=== PATIENT | female | born 1985 | race Two or more races ===

== ENCOUNTER 2024-08-06 08:25 | Outpatient (CLI) | payer OTHER | END 2024-08-06 08:27 | disposition home or self-care (01) | LOC: PRENATAL 08:25 | PROVIDERS: ATTEND Obstetrics & Gynecology Maternal & Fetal Medicine | DX: O36.80X0 Pregnancy with inconclusive fetal viability, not applicable or unspecified (principal); Z36.82 Encounter for antenatal screening for nuchal translucency; O09.529 Supervision of elderly multigravida, unspecified trimester; Z36.9 Encounter for antenatal screening, unspecified; Z14.8 Genetic carrier of other disease; Z3A.12 12 weeks gestation of pregnancy ==

== ENCOUNTER 2024-10-02 08:41 | Outpatient (CLI) | payer OTHER | END 2024-10-02 08:42 | disposition home or self-care (01) | LOC: PRENATAL 08:41 | PROVIDERS: ATTEND Obstetrics & Gynecology Maternal & Fetal Medicine | DX: O44.00 Complete placenta previa NOS or without hemorrhage, unspecified trimester (principal); O09.529 Supervision of elderly multigravida, unspecified trimester; O99.280 Endocrine, nutritional and metabolic diseases complicating pregnancy, unspecified trimester; Z3A.21 21 weeks gestation of pregnancy ==

== ENCOUNTER 2024-12-24 08:16 | Outpatient (CLI) | payer OTHER | END 2024-12-24 08:18 | disposition home or self-care (01) | LOC: PRENATAL 08:16 | PROVIDERS: ATTEND Obstetrics & Gynecology Maternal & Fetal Medicine | DX: O26.849 Uterine size-date discrepancy, unspecified trimester (principal); O36.8199 Decreased fetal movements, unspecified trimester, other fetus; O09.529 Supervision of elderly multigravida, unspecified trimester; O99.280 Endocrine, nutritional and metabolic diseases complicating pregnancy, unspecified trimester; O36.60X0 Maternal care for excessive fetal growth, unspecified trimester, not applicable or unspecified; Z3A.34 34 weeks gestation of pregnancy ==

== ENCOUNTER 2025-01-21 08:17 | Outpatient (CLI) | payer OTHER ==
[~2025-01-21 08:17] MED LIST: GLUCOMETERDEVICE {1, null}; GLUCOSE TEST S1 EACH {1, null}; LANCETS1 EAC2 {1, null}
== END 2025-01-21 08:18 | disposition home or self-care (01) ==
LOC: PRENATAL 08:17
PROVIDERS: ATTEND Obstetrics & Gynecology Maternal & Fetal Medicine
DX: O26.849 Uterine size-date discrepancy, unspecified trimester (principal); O36.8199 Decreased fetal movements, unspecified trimester, other fetus; O09.529 Supervision of elderly multigravida, unspecified trimester; O99.280 Endocrine, nutritional and metabolic diseases complicating pregnancy, unspecified trimester; O99.019 Anemia complicating pregnancy, unspecified trimester; O24.419 Gestational diabetes mellitus in pregnancy, unspecified control; Z3A.36 36 weeks gestation of pregnancy

== ENCOUNTER 2025-02-18 10:13 | Inpatient (IN) | payer OTHER ==
[~2025-02-18] VITALS: Ht 175.3 cm; Wt 82.1 kg
[2025-02-21] VITALS (8 sets, daily range): BP systolic 117–132; BP diastolic 74–81
[2025-02-21] MEDS ORDERED: OXYTOCIN 20 UNITS/500ML RL PIGGYBAG IV ONE (06:22)
[2025-02-21] MEDS ORDERED: PRENATAL TABLE1 EAC6 PO (06:25)
[2025-02-21] MEDS ORDERED: LEVOTHYROXINE25 MCG PO (06:25)
[2025-02-21] MEDS ORDERED: OXYTOCIN 500 ML IV SCH (06:30)
[2025-02-21] MEDS ORDERED: RINGERS SOLUTION,LACTATED 1,000 ML IV SCH (06:30)
[2025-02-21 06:59] LABS: URINE APPEARANCE Clear; URINE BILIRRUBIN Negative (NEGATIVE); URINE BLOOD Small; URINE COLOR Yellow; URINE GLUCOSE Negative (NEGATIVE); URINE KETONE Negative (NEGATIVE); URINE LEUKOCYTE Trace; URINE NITRATE Negative; URINE PROTEIN Negative (NEGATIVE); URINE UROBILINOGEN 0.2 E.U./dl
[2025-02-21 07:00] LABS: URINE BACTERIA 156.5 uL (0.0-1933); URINE EPITHELIAL CELLS 31.9 uL (0.0-38.8); URINE WBC 50.9 uL (0.0-23.2)
[2025-02-21 07:02] LABS: HEMATOCRIT 37.4 % (36.0-45.00); HEMOGLOBIN 12.8 g/dL (12.0-15.00); MEAN CELL VOLUME 89.5 fL (80.00-100.00); MEAN CORPUSCULAR HEMOGLOBIN 30.7 pg (27.00-32.0); MEAN CORPUSCULAR HGB CONC 34.3 g/dl (32.0-36.0); RED BLOOD COUNT 4.17 M/uL (4.00-6.00); RED CELL DISTRIBUTION WIDTH 15.9 % (11.5-14.5)
[2025-02-21 07:06] LABS: URINE RBC 1.1 uL (0.0-20.8)
[2025-02-21 07:07] LABS: PLATELET COUNT 120 K/uL (150-450)
[2025-02-21 07:22] LABS: INR < 0.93; PARTIAL THROMBOPLASTIN TIME 28.2 SECONDS (22.0-34.0); PROTHROMBIN TIME 9.9 SECONDS (9.0-11.5)
[2025-02-21 07:40] LABS: ALBUMIN 2.7 gm/dL (3.4-5.0); BILIRUBIN TOTAL 0.72 mg/dL (0.3-1.2); CALCIUM 8.9 mg/dL (8.5-10.1); CREATININE SERUM 0.52 mg/dL (0.55-1.02); GFR 129.95; GLOBULINA 3.4 G/DL (2.4-3.5); POTASSIUM 3.46 mEq/L (3.5-5.1); TOTAL PROTEIN 6.1 gm/dL (6.4-8.2)
[2025-02-21] MEDS ORDERED: MORPHINE SULFATE 4 MG/ML CARTRIDGE IV STA (12:57)
[2025-02-21] MEDS ORDERED: OXYTOCIN 20 UNITS/1000ML RL PIGGYBAG IV ONE ×2 (14:58→16:00)
[2025-02-21] MEDS ORDERED: CHLORHEXIDINE GLUCONATE 120 ML BOTTLE TOP ONE ×2 (14:58→16:00)
[2025-02-21] MEDS ORDERED: ERYTHROMYCIN BASE OPHT 1GM EACH TUBE OP ONE ×2 (14:58→16:00)
[2025-02-21] MEDS ORDERED: LIDOCAINE HCL 1% 10ML VIAL ONE ×2 (14:58→15:31)
[2025-02-21] MEDS ORDERED: OxyCODONE HCL/APAP UD (PERCOCET) PO PRN (16:00)
[2025-02-21] MEDS ORDERED: LIDOCAINE HCL 1% 10ML VIAL IJ ONE (16:00)
[2025-02-21] MEDS ORDERED: OxyCODONE HCL 5 MG TABLET (ROXICODONE) PO PRN (16:15)
[2025-02-21] MEDS ORDERED: BENZOCAINE/MENTHOL 90 ML BOTTLE TOP SCH (17:00)
[2025-02-21] MEDS ORDERED: HYDROCORTISONE 2.5% 30 GM TUBE RECTAL SCH (17:00)
[2025-02-21] MEDS ORDERED: ACETAMINOPHEN 325 MG TABLET PO SCH (17:00)
[2025-02-22] VITALS: BP 120/68
[2025-02-22 02:04] LABS: HEMOGLOBIN 12.4 g/dL (12.0-15.00); MEAN CELL VOLUME 90.2 fL (80.00-100.00); MEAN CORPUSCULAR HEMOGLOBIN 30.3 pg (27.00-32.0); MEAN CORPUSCULAR HGB CONC 33.6 g/dl (32.0-36.0); RED CELL DISTRIBUTION WIDTH 16.3 % (11.5-14.5)
[2025-02-22 02:20] LABS: PLATELET COUNT 127 K/uL (150-450)
[2025-02-22 07:51] VITALS: BP 103/65
[2025-02-22 16:31] VITALS: BP 111/71
[2025-02-23] VITALS: BP 119/70
[2025-02-23] MEDS ORDERED: LEVOTHYROXINE SODIUM 50 MCG TABLET PO SCH (06:00)
[2025-02-23 08:21] VITALS: BP 113/72
== END 2025-02-23 13:28 | disposition home or self-care (01) | DRG 807 ==
LOC: OB/GYN 10:13 → LDR 02-21 05:34 → OB/GYN 02-21 20:52
PROVIDERS: ADMIT Specialist; ATTEND Specialist
PROC: 10E0XZZ Delivery of Products of Conception, External Approach (ICD-10-PCS; principal; 2025-02-21)
PROC: 0HQ9XZZ Repair Perineum Skin, External Approach (ICD-10-PCS; 2025-02-21)
PROC: 3E033VJ Introduction of Other Hormone into Peripheral Vein, Percutaneous Approach (ICD-10-PCS; 2025-02-21)
PROC: 4A1HXCZ Monitoring of Products of Conception, Cardiac Rate, External Approach (ICD-10-PCS; 2025-02-21)
DX: O70.1 Second degree perineal laceration during delivery (principal); O69.81X0 Labor and delivery complicated by cord around neck, without compression, not applicable or unspecified; Z37.0 Single live birth; Z3A.40 40 weeks gestation of pregnancy